=== PATIENT | female | born 1940 | race Caucasian/White ===

== ENCOUNTER 2016-09-03 06:45 | Day surgery (SDC) | payer MEDICARE, OTHER ==
--- NOTE | ~2016-09-03 | EGD ---
EGD REPORT [facility] [address] [place] [place] [address] NAME: RAFAELA CHAVIRA : [birth year] STATUS : REG [facility]#: [id number] AGE: 76 ADM/REG DATE : 09/03/16 MR#: [id number] REPORT SERV DATE: 09/03/16 DICTATED BY: DATE: REPORT STATUS : Draft TRANSCRIBED BY: [employer] DATE: 09/03/16 Endoscopy Center Patient Name: Rafaela Chavira Date of : 1940 Attending MD: KOSTAS BRYANT MD Procedure Date No Time: 09/03/2016 Procedure: Colonoscopy Indications: Change in bowel habits, Constipation Referring MD: PATRICK CARVAJAL Medicines: Monitored Anesthesia Care Complications: No immediate complications. Procedure: Pre-Anesthesia Assessment: - ASA Grade Assessment: III - A patient with severe systemic disease. After I obtained informed consent, the scope was passed under direct vision. Throughout the procedure, the patient's blood pressure, pulse, and oxygen saturations were monitored continuously. The PCF [id number] was introduced through the anus and advanced to the cecum, identified by appendiceal orifice and ileocecal valve. The colonoscopy was performed without difficulty. The patient tolerated the procedure well. The quality of the bowel preparation was excellent. Findings: The perianal and digital rectal examinations were normal. A few angioectasias were found in the ascending colon and in the cecum. A sessile polyp was found at the hepatic flexure. The polyp was diminutive in size. The polyp was removed with a cold biopsy forceps. Resection and retrieval were complete. A sessile polyp was found at the hepatic flexure. The polyp was small in size. The polyp was removed with a cold snare. Resection and retrieval were complete. A sessile polyp was found in the sigmoid colon. The polyp was small in size. The polyp was removed with a cold snare. Resection and retrieval were complete. No other significant abnormalities were identified in a careful examination of the remainder of the colon. There is no endoscopic evidence of inflammation, mass or ulcerations in the entire colon. Internal hemorrhoids were found during retroflexion and were Grade I (internal hemorrhoids that do not prolapse). No additional abnormalities were found on retroflexion. Impression: - A few colonic angioectasias. EGD REPORT [address] [place]. [address] NAME: RAFAELA CHAVIRA : [birth year] STATUS : REG [facility]#: [id number] AGE: 76 ADM/REG DATE : 09/03/16 MR#: [id number] REPORT SERV DATE: 09/03/16 DICTATED BY: DATE: REPORT STATUS : Draft TRANSCRIBED BY: [employer] DATE: 09/03/16 - One diminutive polyp at the hepatic flexure. Resected and retrieved. - One small polyp at the hepatic flexure. Resected and retrieved. - One small polyp in the sigmoid colon. Resected and retrieved. - Internal hemorrhoids. Recommendation: - Patient has a contact number available for emergencies. The signs and symptoms of potential delayed complications were discussed with the patient. Return to normal activities tomorrow. Written discharge instructions were provided to the patient. - High fiber diet. - Discharge patient to home. - Continue present medications. - Await pathology results. - Repeat colonoscopy in 3 years for surveillance. Procedure Code(s): --- Professional --- 73100, Colonoscopy, flexible, proximal to splenic flexure; with removal of tumor(s), polyp(s), or other lesion(s) by snare technique 93587, 59, Colonoscopy, flexible, proximal to splenic flexure; with biopsy, single or multiple Diagnosis Code(s): --- Professional --- K55.20, Angiodysplasia of colon without hemorrhage D12.5, Benign neoplasm of sigmoid colon D12.3, Benign neoplasm of transverse colon K64.0, First degree hemorrhoids R19.4, Change in bowel habit K59.00, Constipation, unspecified CPT copyright 2013 [employer]. All rights reserved. The codes documented in this report are preliminary and upon site monitor review may be revised to meet current compliance requirements. KOSTAS BRYANT MD 09/03/2016 9:04 AM This report has been signed electronically. Number of Addenda: 0 Note Initiated On: 09/03/2016 8:34 AM EGD REPORT [facility] [address] [place]. [address] NAME: RAFAELA CHAVIRA : [birth year] [place] : [place] [facility] [place]#: [id number] AGE: 76 ADM/REG DATE : 09/03/16 MR#: [id number] REPORT SERV DATE: 09/03/16 DICTATED BY: DATE: REPORT STATUS : Draft TRANSCRIBED BY: [employer] DATE: 09/03/16 Scope Withdrawal Time 0 hours 8 minutes 22 seconds [address] [place] [id number]
--- NOTE | ~2016-09-03 | EGD ---
EGD REPORT [facility] [address] [place] [address] NAME: RAFAELA CHAVIRA : 40 STATUS : REG [facility]#: [id number] AGE: 76 ADM/REG DATE : 09/03/16 MR#: [id number] REPORT SERV DATE: 09/03/16 DICTATED BY: DATE: REPORT STATUS : Draft TRANSCRIBED BY: [employer] DATE: 09/03/16 Endoscopy Center Patient Name: Rafaela Chavira Date of : 1940 Attending MD: KOSTAS BRYANT MD Procedure Date No Time: 09/03/2016 Procedure: Upper GI endoscopy Indications: Dysphagia Referring MD: PATRICK CARVAJAL Medicines: Monitored Anesthesia Care Complications: No immediate complications. Procedure: Pre-Anesthesia Assessment: - ASA Grade Assessment: III - A patient with severe systemic disease. After obtaining informed consent, the endoscope was passed under direct vision. Throughout the procedure, the patient's blood pressure, pulse, and oxygen saturations were monitored continuously. The GIF H190 [id number] was introduced through the mouth, and advanced to the second part of duodenum. The upper GI endoscopy was accomplished without difficulty. The patient tolerated the procedure well. Findings: A small hiatus hernia was present. A mild Schatzki ring (acquired) was found at the gastroesophageal junction. A guidewire was placed and the scope was withdrawn. Dilation was performed with a Savary dilator with no resistance at 54 Fr. No other significant abnormalities were identified in a careful examination of the esophagus. There is no endoscopic evidence of Sims's esophagus, areas of erosion, ulcerations or varices in the entire esophagus. The entire examined stomach was normal. There is no endoscopic evidence of inflammation, mucosal abnormalities, ulceration or varices in the entire examined stomach. The examined duodenum was normal. There is no endoscopic evidence of inflammation, mucosal abnormalities or ulceration in the entire examined duodenum. The cardia and gastric fundus were normal on retroflexion. Impression: - Hiatus hernia. - Mild Schatzki ring. Dilated. - Normal stomach. - Normal examined duodenum. EGD REPORT [address] [address] NAME: RAFAELA CHAVIRA : 40 STATUS : REG [facility] PAT#: [id number] AGE: 76 ADM/REG DATE : 09/03/16 MR#: [id number] REPORT SERV DATE: 09/03/16 DICTATED BY: DATE: REPORT STATUS : Draft TRANSCRIBED BY: [employer] DATE: 09/03/16 Recommendation: - Patient has a contact number available for emergencies. The signs and symptoms of potential delayed complications were discussed with the patient. Return to normal activities tomorrow. Written discharge instructions were provided to the patient. - Return to previous diet. - Discharge patient to home. - Continue present medications. Procedure Code(s): --- Professional --- 10777, Esophagogastroduodenoscopy, flexible, transoral; with insertion of guide wire followed by passage of dilator(s) through esophagus over guide wire Diagnosis Code(s): --- Professional --- K44.9, Diaphragmatic hernia without obstruction or gangrene K22.2, Esophageal obstruction R13.10, Dysphagia, unspecified CPT copyright 2013 [employer]. All rights reserved. The codes documented in this report are preliminary and upon home management supervisor review may be revised to meet current compliance requirements. KOSTAS BRYANT MD 09/03/2016 8:48 AM This report has been signed electronically. Number of Addenda: 0 Note Initiated On: 09/03/2016 8:38 AM Scope Withdrawal Time 0 hours 0 minutes 0 seconds [address] [place] [address]
[~2016-09-03 06:45] MED LIST: ACET500CAP PO; ADVIL PO; ALEVE220 MG PO; ANADS PO; FLECAINIDE50 MG PO; JANTOVEN5 MG PO; LIDODERM T; NORV5 PO; PREM9 PO; PRILO PO; TAMBO50 PO; TOPXL25 PO; Z-PAK PO
[2016-09-03 07:19] LABS: INTERNATIONAL NORMAL RATI 1.1 UNITS (-); PROTIME (NOT ORD) 14.4 SEC (12.0-14.5)
== END 2016-09-03 23:59 | disposition home or self-care (01) ==
LOC: DMU 06:45
PROVIDERS: Anesthesiology; Internal Medicine Gastroenterology
PROC: 0D748ZZ Dilation of Esophagogastric Junction, Via Natural or Artificial Opening Endoscopic (ICD-10-PCS; principal; 2016-09-03 08:00)
PROC: 0DBL8ZZ Excision of Transverse Colon, Via Natural or Artificial Opening Endoscopic (ICD-10-PCS; 2016-09-03 08:00)
PROC: 0DBN8ZZ Excision of Sigmoid Colon, Via Natural or Artificial Opening Endoscopic (ICD-10-PCS; 2016-09-03 08:00)
DX: D12.3 Benign neoplasm of transverse colon (principal); D12.5 Benign neoplasm of sigmoid colon; K44.9 Diaphragmatic hernia without obstruction or gangrene; K22.2 Esophageal obstruction; K55.20 Angiodysplasia of colon without hemorrhage; K64.0 First degree hemorrhoids; K21.9 Gastro-esophageal reflux disease without esophagitis; I10 Essential (primary) hypertension; I48.91 Unspecified atrial fibrillation; M79.7 Fibromyalgia; M19.90 Unspecified osteoarthritis, unspecified site; Z88.8 Allergy status to other drugs, medicaments and biological substances; Z79.01 Long term (current) use of anticoagulants; Z79.899 Other long term (current) drug therapy; Z96.1 Presence of intraocular lens; Z98.41 Cataract extraction status, right eye; Z98.42 Cataract extraction status, left eye; Z90.49 Acquired absence of other specified parts of digestive tract; Z90.710 Acquired absence of both cervix and uterus; Z98.890 Other specified postprocedural states; Z85.828 Personal history of other malignant neoplasm of skin
CPT/HCPCS: 85610; 88305